=== PATIENT | female | born 1995 | race Hispanic/Latino ===

== ENCOUNTER 2024-05-30 08:30 | Emergency (ER) | payer SELFPAY ==
[~2024-05-30] VITALS: Ht 167.6 cm; Wt 86.6 kg
[~2024-05-30 08:30] MED LIST: AZITHROMYCIN250 MG PO; PREDNISONE20 MG PO; VENTOLIN HFA18 GM INH
[2024-05-30 08:53] VITALS: TEMP 97.8
[2024-05-30 09:32] VITALS: PULSE 86; RESP 17; O2SAT 100
[2024-05-30 09:33] LABS: BASOPHILS % 0.5 % (0.0-1.0); EOSINOPHILS # (AUTO) 0.2 (0.0-0.4); EOSINOPHILS % 2.2 % (0.0-6.0); HEMATOCRIT 38.8 % (34.2-44.1); HEMOGLOBIN 12.1 g/dL (12.0-16.0); LYMPHOCYTES # (AUTO) 2.6 (1.0-3.2); LYMPHOCYTES % 31.1 % (18.0-39.1); MEAN CORPUSCULAR HEMOGLOBIN 27.9 pg (28-32); MEAN CORPUSCULAR HGB CONC 31.2 g/dL (31-35); MEAN CORPUSCULAR VOLUME 89.4 fL (81-99); MONOCYTES # (AUTO) 0.6 (0.2-0.8); MONOCYTES % 7.3 % (4.4-11.3); NEUTROPHILS % 58.5 % (38.7-80.0); PLATELET COUNT 297 x10e3/uL (140-360); RED BLOOD COUNT 4.34 x10e6/uL (3.6-5.1); RED CELL DISTRIBUTION WIDTH 13.5 % (11.7-14.4); WHITE BLOOD COUNT 8.47 x10e3/uL (4.8-10.8)
[2024-05-30 09:47] LABS: CLARITY,URINE CLOUDY (CLEAR); COLOR,URINE YELLOW (YELLOW); GLUCOSE, URINE NEGATIVE (NEGATIVE); LEUKOCYTE ESTERASE ,URINE NEGATIVE (NEGATIVE); NITRITE,URINE NEGATIVE (NEGATIVE); PH,URINE 6.5 (5 - 7); PROTEIN,URINE DIPSTICK NEGATIVE (NEGATIVE)
[2024-05-30 09:48] LABS: BILIRUBIN,URINE NEGATIVE (NEGATIVE); KETONES,URINE NEGATIVE (NEGATIVE); URINE UROBILINOGEN 0.2 mg/dL (0.2 - 1)
[2024-05-30 09:56] LABS: ALBUMIN 4.1 g/dL (3.5-5.0); ALBUMIN/GLOBULIN RATIO 1.1 (0.8-2.0); ANION GAP 14.7 mmol/L (8-16); BILIRUBIN,TOTAL 0.4 mg/dL (0.2-1.2); CALCIUM 9.4 mg/dL (8.4-10.2); CREATININE, SERUM 0.78 mg/dL (0.57-1.11); POTASSIUM 3.7 mmol/L (3.5-5.1)
[2024-05-30 09:57] LABS: LIPASE 24 U/L (8-78)
[2024-05-30 09:58] LABS: BACTERIA,URINE MODERATE /HPF
[2024-05-30 09:59] LABS: EPITHELIAL CELLS,URINE MODERATE /LPF
[2024-05-30] MEDS ORDERED: IOPAMIDOL 370 MG/ML 100 ML INFUS..BTL INJ ONE (10:26)
[2024-05-30] MEDS ORDERED: KETOROLAC TROMETHAMINE 30 MG/ML VIAL ONE (13:02)
[2024-05-30] MEDS: KETOROLAC TROMETHAMINE 30 MG/ML VIAL IV STA (13:05)
== END 2024-05-30 14:37 | disposition home or self-care (01) ==
LOC: ER 08:38
DX: R10.31 Right lower quadrant pain (principal); R10.32 Left lower quadrant pain; M25.511 Pain in right shoulder; R53.83 Other fatigue
CPT/HCPCS: 36415; 71046; 74177; 80053; 81001; 83690; 84702; 85025; 99284; J1885; Q9967

== ENCOUNTER 2025-01-03 23:01 | Emergency (ER) | payer SELFPAY ==
[~2025-01-03] VITALS: Ht 167.6 cm; Wt 86.6 kg
[2025-01-03 23:24] LABS: CLARITY,URINE CLEAR (CLEAR); COLOR,URINE YELLOW (YELLOW); GLUCOSE, URINE NEGATIVE (NEGATIVE); KETONES,URINE NEGATIVE (NEGATIVE); LEUKOCYTE ESTERASE ,URINE NEGATIVE (NEGATIVE); NITRITE,URINE NEGATIVE (NEGATIVE); PH,URINE 6 (5 - 7); PROTEIN,URINE DIPSTICK NEGATIVE (NEGATIVE)
[2025-01-03 23:25] LABS: BILIRUBIN,URINE NEGATIVE (NEGATIVE); PREGNANCY TEST, URINE NEGATIVE (NEGATIVE); URINE UROBILINOGEN 1 mg/dL (0.2 - 1)
[2025-01-03 23:28] LABS: BACTERIA,URINE MODERATE /HPF; EPITHELIAL CELLS,URINE MODERATE /LPF; WBC,URINE (MAN) 0-5 /HPF (0-5)
[2025-01-03] MEDS: ONDANSETRON HCL 4 MG ORAL DISINTEGRATING TAB PO ONE (23:28)
[2025-01-03] MEDS: KETOROLAC TROMETHAMINE 60 MG/2 ML VIAL IM STA (23:28)
[2025-01-04 01:05] VITALS: PULSE 74; RESP 17; TEMP 98
[2025-01-04] MEDS ORDERED: KETOROLAC TROME10 MG PO (01:40)
[2025-01-04 01:50] VITALS: BP 116/84; PULSE 78; RESP 19; TEMP 97.9; O2SAT 99
== END 2025-01-04 01:55 | disposition home or self-care (01) ==
LOC: ER 23:06
DX: R10.32 Left lower quadrant pain (principal); R10.13 Epigastric pain; R11.0 Nausea; R53.83 Other fatigue
CPT/HCPCS: 74176; 76830; 76856; 81001; 81025; 99283; J1885; Q0162

== ENCOUNTER 2025-04-30 22:58 | Emergency (ER) | payer OTHER ==
[~2025-04-30] VITALS: Ht 167.6 cm; Wt 86.6 kg
[~2025-04-30 22:58] MED LIST changes: +KETOROLAC TROME10 MG PO
[2025-04-30 22:59] VITALS: PULSE 73; RESP 17; TEMP 98.4
[2025-04-30 23:30] LABS: BASOPHILS % 0.6 % (0.0-1.0); EOSINOPHILS % 1.7 % (0.0-6.0); LYMPHOCYTES % 40.2 % (18.0-39.1); MONOCYTES % 8.1 % (4.4-11.3); NEUTROPHILS % 49.2 % (38.7-80.0); RED CELL DISTRIBUTION WIDTH 14.3 % (11.7-14.4)
[2025-04-30] MEDS ORDERED: SODIUM CHLORIDE FLUSH 10 ML SYR IV PRN (23:30)
[2025-04-30 23:45] LABS: EST GLOMERULAR FILTRATION RATE 98.0 ML/MIN (>=60)
[2025-05-01 00:30] LABS: LEUKOCYTE ESTERASE ,URINE NEGATIVE (NEGATIVE); PROTEIN,URINE DIPSTICK NEGATIVE (NEGATIVE); URINE UROBILINOGEN 0.2 mg/dL (0.2 - 1); WBC,URINE (MAN) 0-5 /HPF (0-5)
[2025-05-01 00:31] LABS: EPITHELIAL CELLS,URINE MODERATE /LPF
[2025-05-01] MEDS ORDERED: MEDROL4 M2 PO (00:52)
[2025-05-01] MEDS ORDERED: VALTREX1000 MG PO (00:52)
[2025-05-01 01:08] VITALS: BP 115/70; PULSE 78; RESP 20; O2SAT 99
== END 2025-05-01 01:09 | disposition home or self-care (01) ==
LOC: ER 23:33
DX: G51.0 Bell's palsy (principal); M62.838 Other muscle spasm; M54.2 Cervicalgia; M25.512 Pain in left shoulder
CPT/HCPCS: 36415; 70450; 80053; 81001; 84702; 85025; 93005; 94760; 99284